=== PATIENT | male | born 1955 | race Caucasian/White ===

== ENCOUNTER → 2017-10-21 | Day surgery (SDC) | payer OTHER ==
[~2017-10-21] VITALS: Ht 180.3 cm; Wt 96.2 kg
[~2017-10-21] MED LIST: VALIUM5 M2 PO
--- NOTE | 2017-10-21 10:59 | Operative Report ---
Operative/Inv Procedure Report Surgery Date: 10/21/17 Name of Procedure: Left L4-5 decompression, discectomy, performed under microscopic guidance and dissection Pre-Operative Diagnosis: Lumbar spondylosis, L4-5 stenosis, Left L4-5 disc herniation Post-Operative Diagnosis: same Estimated Blood Loss: 800cc Surgeon/[place] Hand: Angel Grossman MD Anesthesia: general endotracheal tube (General En) Complications: None Condition: stabel Operative Indication: patient with low back and leg pain. MRI demonstrates L4-5 spondylosis, stenosis , HNP Operative/Procedure Note Note: After informed consent, patient was brought into operating room and underwent general endrotrachela anesthesia. He was placed onto the operating room table in the prone position. His lower back was shaved, prepped, and draped in a sterile fashion. Local anesthesia with epi was used. An incision was made in the lower back in the midline. Hemostasis was achieved using bovie electrautery. We dissected through the subcutaneous tissue and incised the deep fascia using bovie electrcautery. In a subperiosteal fashion, we exposed the spinous process and lamina towards the left side. This was done very carefully and without incident. The rest of the procedure was performed very carefully and without incident. Self retaining retractor was placed. Copious irrigation was used at this point as well as throughout this procedure. Meticulous hemostasis was maintained throughout the procedure using bipolar electrocautery. Lateral xray was used to identify the spinal level. The microscope was moved into the operative field and the rest of the procedure was performed under microscopic guidance and dissection. The midas bear drill was used to drill the left L4 lamina. Kerrison rongeur was used to enlarge the laminotomy opening. Bony hemostasis was achieved using bone wax. The ligamentum flavum was opened sharply. Kerrison rongeur was used to enlarge the ligamentous opening. The dura was clearly identified. This was very gently retracted medially. Disc herniation was seen, extending caudally. This was carefully incised using 11 blade. Multiple fragments of herniated disc material were removed very carefully using blunt nerve hook and pituitary rongeur. An excellent decompression was achieved. Hemostasis was achieved using bipolar electrocautery, gelfoam soaked in thrombin, and floseal. Retractor was removed and muscular hemostasis was achieved using bipolar electrocautery. The wound was then closed in multiple layers, including vicryl to the deep fascia, the subcutaneous layer, and the subcuticular layer. Steri strips were applied to the skin edges. Dressings were applied, the drapes were removed, and the patient was returned to the supine position. He was then awoke and extubated and transferred to the recovery room after tolerating the procedure well in stable condition.
--- NOTE | 2017-10-21 22:42 | RADIOLOGY REPORT ---
EXAMINATION: XR LUMBAR SPINE CLINICAL INFORMATION: L4-L5 decompression. COMPARISON: Lumbar spine films dated 10/02/2017. TECHNIQUE: Single lateral view of the lumbar spine. FINDINGS: A surgical marker seen projected over just posterior to the L4-L5 facet joint. Mild multilevel vertebral spondylosis in the lumbar spine and moderate facet arthropathy in lower lumbar spine. IMPRESSION: Localization of the L4-L5 facet joint.
== END ==
LOC: STS 01:17
DX: M47.896 Other spondylosis, lumbar region (principal); M51.26 Other intervertebral disc displacement, lumbar region; M48.061 Spinal stenosis, lumbar region without neurogenic claudication; M79.605 Pain in left leg; I10 Essential (primary) hypertension; M19.90 Unspecified osteoarthritis, unspecified site
CPT/HCPCS: 36415; 72020; 88304; J0690; J1030; J2250; J3490